=== PATIENT | female | born 1980 | race Hispanic/Latino ===

== ENCOUNTER 2018-03-04 19:31 | Emergency (ER) | payer OTHER | END 2018-03-04 19:58 | disposition home or self-care (01) | LOC: SCSER 19:31 | DX: Z76.0 Encounter for issue of repeat prescription (principal); F32.9 Major depressive disorder, single episode, unspecified; F19.939 Other psychoactive substance use, unspecified with withdrawal, unspecified | CPT/HCPCS: 99281 ==

== ENCOUNTER 2018-04-13 11:22 | Emergency (ER) | payer OTHER ==
[2018-04-13 11:58] LABS: Bilirubin Negative (Negative); Blood, Urine Negative (Negative); Clarity CLEAR (Clear); Glucose, Urine (Dipstick) Negative (Negative); Leukocyte Negative (Negative); Nitrite Negative (Negative); Protein, Urine (Dipstick) Negative (Neg-Trace); Specific Gravity, Urine 1.006 (1.002-1.036); Urobilinogen 0.2 mg/dL (0.2-1.0); pH, Urine 6.5 (5.0-9.0)
[2018-04-13 11:59] LABS: Pregnancy Test - Urine (BHCG) POSITIVE (Negative); Pregu Control Background? CLEAR/WHITE (CLR/WHITE); Pregu Control Bar Appear? YES (CONTROL BAR); Specific Gravity 1.006 (1.002-1.036)
[2018-04-13 14:09] LABS: #Lymphocytes 0.8 thou/uL (1.20-3.40); #Monocytes 0.2 thou/uL (0.11-0.59); #Neutrophils 5.7 thou/uL (1.40-6.50); %Basophils 0.6 % (0.0-1.0); %Eosinophils 0.5 % (0.0-10.0); %Lymphocytes 12.2 % (21.0-51.0); %Neutrophils 83.6 % (42.0-75.0); Hemoglobin 12.9 g/dL (12.0-16.0); Mean Corpuscular HGB CONC 33.7 g/dL (32.0-36.0); Mean Corpuscular Hemoglobin 34.1 pg (27.0-31.0); Mean Platelet Volume 8.2 fL (7.4-10.4); Platelet Count 212 thou/uL (130-400); RBC Distribution Width 11.2 % (11.5-14.5); Red Blood Cell (RBC) Count 3.77 mill/uL (4.20-5.40); White Blood Cell (WBC) Count 6.8 thou/uL (4.8-10.8)
[2018-04-13 14:19] LABS: ALT (SGPT) 7 U/L (8-55); AST (SGOT) 12 U/L (5-34); Albumin 4.2 g/dL (3.5-5.0); Alkaline Phosphatase 35 U/L (40-150); Anion Gap 14 mmol/L (10-20); BUN (Urea Nitrogen) 9 mg/dL (7.0-18.7); Bilirubin, Total 0.6 mg/dL (0.2-1.2); Calc. Creatinine Clearance 0 mL/min (70-130); Calcium 9.1 mg/dL (7.8-10.44); Carbon Dioxide 19 mmol/L (22-29); Chloride 108 mmol/L (98-107); Estimated GFR-MDRD Greater than 90; Globulin 2.3 g/dL (2.4-3.5); Glucose 122 mg/dL (70-105); Lipase 22 U/L (8-78); Potassium 3.5 mmol/L (3.5-5.1); Protein, Total 6.5 g/dL (6.0-8.3); Sodium 137 mmol/L (136-145)
--- NOTE | 2018-04-13 14:23 | ULT ---
PELVIC ULTRASOUND WITH DOPPLER: DATE: 04/13/18. PROVIDED CLINICAL HISTORY: Vaginal bleeding. FINDINGS: Single live intrauterine gestation is documented with crown-rump length corresponding to a 6-week 4-d ay gestation. No evidence for significant perigestational hemorrhage. Heart rate of 127 b.p.m. is d ocumented. The right and left ovaries appear sonographically normal. Color Doppler and spectral crow lysis with ovarian waveforms demonstrates normal flow bilaterally. No evidence for significant free pelvic fluid. IMPRESSION: Single live intrauterine gestation, 6 weeks 4 days by crown-rump length. POS: [facility]
== END 2018-04-13 14:52 | disposition home or self-care (01) ==
LOC: ERS 11:22
DX: O20.0 Threatened abortion (principal); O99.331 Smoking (tobacco) complicating pregnancy, first trimester; F17.210 Nicotine dependence, cigarettes, uncomplicated
CPT/HCPCS: 36415; 76856; 80053; 81003; 81025; 83690; 84702; 85025; 86900; 86901

== ENCOUNTER 2018-07-10 15:39 | Emergency (ER) | payer OTHER, SELFPAY ==
[2018-07-10] MEDS ORDERED: Acetaminophen 500 MG TAB ONE (15:56)
== END 2018-07-10 16:54 | disposition home or self-care (01) ==
LOC: SCSER 15:39
DX: O99.512 Diseases of the respiratory system complicating pregnancy, second trimester (principal); J10.1 Influenza due to other identified influenza virus with other respiratory manifestations; O99.332 Smoking (tobacco) complicating pregnancy, second trimester; Z3A.20 20 weeks gestation of pregnancy; Z79.899 Other long term (current) drug therapy
CPT/HCPCS: 87804; 99283

== ENCOUNTER 2018-09-10 16:47 | Day surgery (SDC) | payer OTHER ==
[2018-09-10 17:16] VITALS: BP 134/77; TEMP 99.2; BMI 29.9
--- NOTE | 2018-09-10 17:41 | PDOC.FPROB ---
FMR OB H&P: HPI - History of Present Illness Chief Complaint: Lower abdominal pain with radiation to right flank Indentification: at 28.0 wks by 6.4 wk sono History of Present Illness: 38 year old at 28.0 wks by 6.4 wk sono that presents with lower abdominal pain and N/V since last night after dinner. Patient reports the pain has become progressively worse during that time. She had one bout of emesis last night but has been nauseous all day today. Patient states that she has not attempted to eat today due to the nausea. She has had water today and was able to keep it down. Patient denies fever or chills. She denies vaginal bleeding, vaginal discharge, LoF, or contractions. The abdominal pain feels like a cramping pain which is constant. She denies dysuria. Primary Care Physician: SHERMAN FMR OB H&P: Current - Care : 7 Para: [id number] Gestational age: 28.0 wks Due date: 12/03/2018 Dating Criteria: 6.4 wk sono FMR OB H&P: History - Past Medical History PMH: Depression - OB History OB History: AMA PTL with PTD x5 never on steroids - Surgical History Sx History: Denies - Social History Social History: Denies alcohol, tobacco, or drug use - Family History Family History: Insignificant FMR OB H&P: Medications - Current Home Medications: Medication Instructions Recorded Confirmed Type Vitamin 1 tablet PO DAILY 09/10/18 09/10/18 History Allergies/Adverse Reactions: Allergies Allergy/AdvReac Type Severity Reaction Status Date / Time ceftriaxone [From Rocephin] Allergy Verified 09/10/18 17:14 FMR OB H&P: ROS - Review of Systems General: reports: weight/appetite/sleep changes. denies: fever/chills Eyes: denies: vision changes, double vision ENT: denies: nasal congestion, rhinorrhea, sore throat Cardiovascular: denies: chest pain, palpitation, edema Respiratory: denies: cough, congestion, shortness of breath Gastrointestinal: reports: abdominal pain, cramping, nausea, vomiting. denies: diarrhea Genitourinary (Female): denies: dysuria, vaginal discharge, vaginal pain, vaginal bleeding, contractions Musculoskeletal: denies: pain, stiffness Neurologic: denies: numbness, syncope, seizures Integumentary: denies: itching, lesions Hematologic/Lymphatic: denies: prolonged or excessive bleeding Psychological: reports: depression, anxiety FMR OB H&P: Vital Signs - Maternal Vital signs: Vital Signs - First Documented Temp Pulse Resp BP 99.2 F 97 18 134/77 09/10/18 17:14 09/10/18 17:14 09/10/18 17:14 09/10/18 17:14 - Heart Tones Baseline: 130 Variability: moderate Category: category 1 Aldrich contractions every: none FMR OB H&P: Physical Exam - Physical Exam General: NAD, awake, alert and oriented HEENT: MMM, grossly normal vision, grossly normal hearing Neck: supple Heart: RRR, normal S1/S2 General: CTAB, no respiratory distress Abdomen: soft, gravid, other (No rebound tenderness) Deviation from normal: Mildly tender to palpation in suprapubic region and right lower quadrant. Musculoskeletal: pulses present, FROM in all four extremities Neurological: no tremor, no focal deficit Skin: no rash, capillary refill <2 seconds Lymphatic: no unusual bruising or bleeding Psychiatric: intact recent and remote memory, good judgement and insight, normal mood and affect FMR OB H&P: A/P - Problem List (1) Hx of PTL ( labor), current Status: Acute Code(s): O09.219 - SUPRVSN OF PREG W HISTORY OF PRE-TERM LABOR, UNSP TRIMESTER Qualifiers: Trimester: third trimester Qualified Code(s): O09.213 - Supervision of with history of pre-term labor, third trimester (2) AMA (advanced maternal age) multigravida 35+ Status: Acute Code(s): O09.529 - SUPERVISION OF ELDERLY MULTIGRAVIDA, UNSPECIFIED TRIMESTER (3) Intrauterine Status: Acute Code(s): Z34.90 - ENCNTR FOR SUPRVSN OF NORMAL , UNSP, UNSP TRIMESTER (4) Poor patient attendance of care Status: Acute Code(s): O09.30 - SUPRVSN OF PREG W INSUFFICIENT ANTENAT CARE, UNSP TRIMESTER (5) Depression Status: Acute Code(s): F32.9 - MAJOR DEPRESSIVE DISORDER, SINGLE EPISODE, UNSPECIFIED Disposition: 38 year old at 28.0 wks by 6.4 wk nixon presents with lower abdominal pain since yesterday 1. Lower abdominal pain radiating to right flank; likely SI joint pain with round ligament pain - Straight cath UA negative - UDS positive for opiates; patient on opiates chronically - PO hydrate - Category I strip - Patient shown some stretching techniques - Cervical exam; closed/thick/high 2. Hx of PTL x5 - Has not been on progesterone - PTL w/ PTD 32-36 wks 3. AMA - Desired genetic screening but is now outside of window for quad screen 4. Opiate use - Prescribed by PCP - Advised patient taper off medication with help of PCP Dispo: SI joint pain. Stretching exercises shown to patient. Patient to be d/c' d with return precautions. Discussion: Date/Time: 09/10/18 2270 This H&P was discussed with Dr. Heredia who agrees with the above documentation and plan. Signature: Coral Perla, PGY-2 Addendum - Attending - Attending Attestation Date/Time: 09/11/18 [id number] I personally evaluated the patient and discussed the management with Dr. Perla I agree with the History, Examination, Assessment and Plan documented above with any addition or exceptions noted below.
[2018-09-10 18:12] LABS: Bilirubin Negative (Negative); Blood, Urine Small (Negative); Clarity CLEAR (Clear); Glucose, Urine (Dipstick) Negative (Negative); Leukocyte Negative (Negative); Nitrite Negative (Negative); Protein, Urine (Dipstick) Negative (Neg-Trace); Specific Gravity, Urine 1.013 (1.002-1.036); Urobilinogen 0.2 mg/dL (0.2-1.0); pH, Urine 6.5 (5.0-9.0)
[2018-09-10 18:16] LABS: Bacteria/HPF None Seen HPF (None Seen); Hyaline Casts/LPF 4-6 HYALINE CAST LPF (0-3 Hyaline); Squamous Epithelial 0-3 HPF (0-3); WBC/HPF 0-3 HPF (0-3)
[2018-09-10 18:23] LABS: Urine Culture Reflex No No
[2018-09-10 18:25] LABS: Amphetamine Not Detected (NotDetected); Barbiturates Screen Not Detected (NotDetected); Benzodiazepine Screen Not Detected (NotDetected); Cocaine Metabolite Screen Not Detected (NotDetected); Medtox Control Line Valid? VALID (VALID); Medtox Reader # READER 1; Methadone Not Detected (NotDetected); Methamphetamine Not Detected (NotDetected); Opiate Screen Detected (NotDetected); Oxycodone Screen Not Detected (NotDetected); Phencyclidine (PCP) Not Detected (NotDetected); THC/Cannabinoid Screen Not Detected (NotDetected); Tricyclic Screen Not Detected (NotDetected)
== END 2018-09-10 18:57 | disposition home or self-care (01) ==
LOC: L&D/OP 16:47
PROVIDERS: ATTEND Family Medicine
DX: O99.89 Other specified diseases and conditions complicating pregnancy, childbirth and the puerperium (principal); R10.9 Unspecified abdominal pain; O99.343 Other mental disorders complicating pregnancy, third trimester; O09.523 Supervision of elderly multigravida, third trimester; Z3A.28 28 weeks gestation of pregnancy; Z88.1 Allergy status to other antibiotic agents
CPT/HCPCS: 80306; 81001; 99282; A4353